=== PATIENT | female | born 1945 | race Caucasian/White ===

== ENCOUNTER 2021-08-11 19:42 | Emergency (ER) | payer MEDICARE, BC ==
[2021-08-11] MEDS ORDERED: Sodium Chloride 0.9% 10 ML Syringe FLUSH PRN (22:03)
[2021-08-11] MEDS ORDERED: fentaNYL 100 MCG/2 ML SDV IVPUSH ONE (22:03)
[2021-08-11] MEDS ORDERED: Ondansetron 4 MG/2 ML SDV IVPUSH ONE (22:03)
[2021-08-11] MEDS ORDERED: Lactated Ringers 1,000 ML IV ONE (22:03)
[2021-08-11 22:44] LABS: TROPONIN I HIGH SENSITIVITY 24.4 pg/mL (<=60.3)
[2021-08-12] MEDS ORDERED: Sodium Chloride 0.9% 10 ML Syringe FLUSH ONE (00:15)
[2021-08-12] MEDS ORDERED: Sodium Chloride 0.9% 50 ML IV SCH (00:15)
[2021-08-12] MEDS ORDERED: Iopamidol 612 MG/ML 100 ML Bottle IV SCH (00:15)
[2021-08-12] MEDS ORDERED: LORazepam 2 MG/ML SDV IVPUSH ONE (01:39)
[2021-08-12] MEDS ORDERED: Alum Hydrox/Mag Hydrox/Simeth 15 ML, Lidocaine 2% 15 ML PO ONE ×2 (01:59)
== END 2021-08-12 03:42 | disposition home or self-care (01) ==
LOC: JP.ED 19:42
DX: K21.9 Gastro-esophageal reflux disease without esophagitis (principal); I10 Essential (primary) hypertension; Z90.49 Acquired absence of other specified parts of digestive tract; Z79.899 Other long term (current) drug therapy; Z79.82 Long term (current) use of aspirin; Z88.0 Allergy status to penicillin; Z88.8 Allergy status to other drugs, medicaments and biological substances; Z88.6 Allergy status to analgesic agent
CPT/HCPCS: 36415; 71045; 71045-26; 74177; 80053; 81001; 83605; 83690; 84484; 85025; 96361; 96374; 96375; 99283; 99284-25; A9270-GY; J2060; J2405; J3010; J3490; J7120; Q9967